=== PATIENT | female | born 1960 | race Caucasian/White ===

== ENCOUNTER → 2020-02-13 09:19 | Outpatient (BNVA) | payer SELFPAY | PROVIDERS: Family Provider Family Medicine; PCP Nurse Practitioner Family; Visit Provider Nurse Practitioner Family | DX: R30.0 Dysuria (principal); N30.01 Acute cystitis with hematuria | CPT/HCPCS: 80053; 81000; 87077; 87086; 87186 ==

== ENCOUNTER → 2020-04-14 09:00 | Outpatient (BNVA) | payer SELFPAY | PROVIDERS: Family Provider Family Medicine; PCP Nurse Practitioner Family; Visit Provider Nurse Practitioner Family | DX: I10 Essential (primary) hypertension (principal); Z68.1 Body mass index [BMI] 19.9 or less, adult; F41.9 Anxiety disorder, unspecified | CPT/HCPCS: 80053; 80061; 84439; 84443; 85025 ==

== ENCOUNTER → 2020-05-05 14:33 | Outpatient (BNVA) | payer SELFPAY | PROVIDERS: Family Provider Family Medicine; PCP Nurse Practitioner Family; Visit Provider Nurse Practitioner Family | DX: R35.0 Frequency of micturition (principal); R31.29 Other microscopic hematuria | CPT/HCPCS: 80053; 81000; 87077; 87086; 87184 ==

== ENCOUNTER 2021-12-16 09:45 | Outpatient (CLI) | payer OTHER, MEDICAID, SELFPAY ==
--- NOTE | 2021-12-16 09:53 | MM_ITS ---
WS: [id number] VIEWS: MLO and CC views both breasts. 3D digital tomosynthesis is also included in this exam. Comparison made with prior exam of 06/21/2010, 10/24/2012, 10/27/2013, 11/13/2014, 05/12/2016.. Findings: There was no sign of mass, architectural distortion or suspicious calcification in either breast. Ho mogeneously dense MM/[place] [id number] Impression: BI-RADS: 2-Benign FOLLOW-UP: 1 Year Follow-up This mammogram was also analyzed by the Computer Aided Detection System R2 Imag e Supervisor [employer].
== END 2021-12-16 09:46 | disposition home or self-care (01) ==
LOC: RAD 09:49
PROVIDERS: Family Provider Family Medicine; PCP Nurse Practitioner Family; Visit Provider Nurse Practitioner Family
DX: Z12.31 Encounter for screening mammogram for malignant neoplasm of breast (principal)
CPT/HCPCS: 77063; 77067

== ENCOUNTER → 2022-01-30 09:00 | Outpatient (BNVA) | payer OTHER, MEDICAID, SELFPAY | PROVIDERS: Family Provider Family Medicine; PCP Nurse Practitioner Family; Visit Provider Nurse Practitioner Family | DX: I10 Essential (primary) hypertension (principal); E55.9 Vitamin D deficiency, unspecified; F41.9 Anxiety disorder, unspecified | CPT/HCPCS: 80053; 80061; 82306; 84443; 85025 ==

== ENCOUNTER 2022-03-05 13:12 | Emergency (ER) | payer OTHER, MEDICAID, SELFPAY ==
[2022-03-05 13:20] VITALS: BP 145/80; PULSE 75; RESP 18; TEMP 36.4; O2SAT 98; BMI 18.3
--- NOTE | 2022-03-05 13:31 | ED_ITS ---
HPI - Allergic Reaction General: Chief complaint: Allergic Reaction Stated complaint: wasp sting Time Seen by Provider: 03/05/22 13:31 Source: patient Mode of arrival: ambulatory Limitations: no limitations History of Present Illness: HPI narrative: 61-year-old female presents to the ER today after a wasp sting about 2 hours ago. Patient reports she was stung and saw the wasp. She was stung on the left posterior forearm. Patient reports there is redness and swelling around the area of the sting. 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 She reports she has had breathing issues before but has not required epi. She reports she does not have an EpiPen at this time. Patient did take 50 mg of Benadryl when this happened. She reports other than the redness and some pain that shoots up her arm she denies any breathing issues, throat swelling, abnormal sensations in the mouth. Review of Systems General: Reports: 10 or more systems reviewed and unremarkable except in HPI and below ENMT: Denies: uvular edema PFS ED PFSH: Medical History Anxiety Depression Family History Sister Parkinsons disease Father Parkinsons disease Social History Smoking and tobacco status: current every day smoker cigarettes Alcohol intake: never Physical Exam Const: COMMON NORMALS: no acute distress, average body habitus, patient oriented x3, no limitations, healthy appearing, alert and well nourished HENMT: COMMON NORMALS: normocephalic, atraumatic, Normal external nose present, Normal nasal mucous membranes and turbinates present, moist oral mucous membranes and oropharynx normal HEAD & SCALP: normocephalic and atraumatic NOSE: Normal external nose present and Normal nasal mucous membranes and turbinates present THROAT: posterior oropharynx normal; no uvular edema Neck/C-Spine: COMMON NORMALS: full ROM and no lymphadenopathy Resp: COMMON NORMALS: normal respiratory effort, No retractions and clear to auscultation bilaterally AUSCULTATION: clear to auscultation bilaterally Cardio: COMMON NORMALS: regular rate, regular rhythm and No murmurs present (Cardio) RATE: regular rate RHYTHM: regular rhythm Extremity: NARRATIVE EXTREMITY EXAM: Patient has tenderness over the area of the wasp sting. There is erythema and some mild swelling also in this area on the posterior left forearm just proximal to the wrist. Patient has normal range of motion. Swelling would be considered mild at this time. Neuro: COMMON NORMALS: patient oriented x3 SENSORIUM/ORIENTATION: Yes alert Psych: COMMON NORMALS: mental status grossly normal, Normal thought process present and cooperative THOUGHT PROCESS: Normal thought process present Skin: NARRATIVE SKIN EXAM: Area of wasp sting has surrounding erythema, no drainage noted. No bruising noted. Course ED course: 61-year-old female presents to the ER today after a wasp sting about 2 hours ago. Patient reports she was stung and saw the wasp. She was stung on the left posterior forearm. Patient reports there is redness and swelling around the area of the sting. 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 She reports she has had breathing issues before but has not required epi. She reports she does not have an EpiPen at this time. Patient did take 50 mg of Benadryl when this happened. She reports other than the redness and some pain that shoots up her arm she denies any breathing issues, throat swelling, abnormal sensations in the mouth. Patient is not in any distress. There does not appear to be any anaphylactic reaction. We will give patient 125 mg of Solu-Medrol in the ER today. Vital Signs: Vital signs: Vital Signs Temperature 97.5 F L 03/05/22 13:20 Pulse Rate 75 03/05/22 13:20 Respiratory Rate 18 03/05/22 13:20 Blood Pressure 145/80 03/05/22 13:20 Pulse Oximetry 98 03/05/22 13:20 MDM - Allergic Reaction Medical Decision Making 61-year-old female presents to the ER today after a wasp sting about 2 hours ago. Patient reports she was stung and saw the wasp. She was stung on the left posterior forearm. Patient reports there is redness and swelling around the area of the sting. 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 She reports she has had breathing issues before but has not required epi. She reports she does not have an EpiPen at this time. Patient did take 50 mg of Benadryl when this happened. She reports other than the redness and some pain that shoots up her arm she denies any breathing issues, throat swelling, abnormal sensations in the mouth. Patient is in no acute distress on exam. No throat swelling or breathing issues. This appears to be a localized skin reaction. I will go ahead and give 125 mg of Solu-Medrol in the ER. Patient did just have 50 mg of Benadryl but I recommended she continue that every 4-6 hours. Also recommended Zyrtec or Claritin daily and famotidine twice daily as needed if any reaction were to continue. I will give patient a prescription for an EpiPen in case she has a worse reaction in the future. Patient should follow-up with PCP as needed. Return to the ER with any new or worsening symptoms. Patient verbalized understanding and was in agreement with the treatment plan. Critical Care Time Critical Care Time: Critical Care Time: No Discharge Plan Discharge Patient Disposition: Home Clinical Impression: Allergic reaction to wasp sting Condition: Stable Prescriptions: New epinephrine 0.3 mg/0.3 mL auto-injector 0.3 mg IM Q15M PRN (Reason: anaphylaxis) Qty: 2 0RF Rx Instructions: do not exceed 3 doses per episode No Action lorazepam 0.5 mg tablet 0.5 mg PO BID PRN (Reason: anxiety) Qty: 60 0RF sertraline 50 mg tablet See Rx Instructions .ROUTE .COMPLEX Qty: 90 0RF Dose Instruction: TAKE ONE TABLET BY MOUTH ONCE DAILY Rx Instructions: TAKE ONE TABLET BY MOUTH ONCE DAILY atenolol 25 mg tablet See Rx Instructions .ROUTE .COMPLEX Qty: 90 0RF Dose Instruction: TAKE ONE TABLET BY MOUTH ONCE DAILY Rx Instructions: TAKE ONE TABLET BY MOUTH ONCE DAILY cholecalciferol (vitamin D3) 50 mcg (2,000 unit) capsule 50 mcg PO DAILY Qty: 90 3RF atorvastatin 20 mg tablet 20 mg PO DAILY Qty: 90 1RF Discharge Orders: Discharge ED (Routine); Ordered 03/05/22 Ordered By: Uzma Gómez Referrals: Lanie Pineda NP [Primary Care Provider] - Discharge Diet: Usual diet Discharge Activity: Resume usual activity Patient Instructions: Opioid Safety Activity Restrictions/Additional Instructions: Take 50 mg of Benadryl every 4-6 hours as long as you have symptoms. Take Zyrtec or Claritin once daily. Take famotidine twice daily as discussed. EpiPen prescription written in case reaction were to worsen. Follow-up with PCP as needed. To the ER with any new or worsening symptoms. Coding Level of Care Code ED Senior Business Development Manager for [employer]ha Sanchez
== END 2022-03-05 14:34 | disposition home or self-care (01) ==
PROVIDERS: Emergency Provider Physician Assistant; PCP Nurse Practitioner Family
DX: T63.461A Toxic effect of venom of wasps, accidental (unintentional), initial encounter (principal); F17.210 Nicotine dependence, cigarettes, uncomplicated
CPT/HCPCS: 96374; 99284; J2930

== ENCOUNTER → 2022-06-05 12:49 | Outpatient (BNVA) | payer OTHER, MEDICAID, SELFPAY | PROVIDERS: PCP Nurse Practitioner Family; Visit Provider Nurse Practitioner Family | DX: Z12.11 Encounter for screening for malignant neoplasm of colon (principal); Z78.0 Asymptomatic menopausal state; Z12.4 Encounter for screening for malignant neoplasm of cervix; I10 Essential (primary) hypertension; F41.9 Anxiety disorder, unspecified; F33.0 Major depressive disorder, recurrent, mild; Z68.1 Body mass index [BMI] 19.9 or less, adult | CPT/HCPCS: 88175 ==

== ENCOUNTER 2022-08-28 00:56 | Emergency (ER) | payer OTHER, MEDICAID, SELFPAY ==
[2022-08-28 01:00] VITALS: BP 157/88; PULSE 62; RESP 16; TEMP 36.4; O2SAT 96; BMI 19.2
--- NOTE | 2022-08-28 01:10 | ED_ITS ---
HPI - Allergic Reaction General: Chief complaint: Allergic Reaction Stated complaint: Wasp Sting Allergic Time Seen by Provider: 08/28/22 00:58 History of Present Illness: HPI narrative: Patient is a 61-year-old female comes to the ED with while standing. Patient is allergic to wasp stings and carries an EpiPen for them. She states that she has never had to use her EpiPen for a wasp sting in the past. The wasp stings occurred approximately an hour ago and she was stung on her right elbow. She has some swelling, redness and itchiness around wasp sting site. Patient took about 10 mg of liquid Benadryl before coming to the ED. She endorses having a little bit of left side of her tongue swelling which she says is common for her because she has glossitis when she takes certain medications such as Benadryl. Denies any lip or tongue tingling, shortness of breath, throat tightening, nausea/vomiting or diarrhea. Associated symptoms: Reports tongue swelling; Deny abdominal pain, facial swelling, nausea or vomiting Review of Systems Const: Denies: fever(s), chills or fatigue Eyes: Denies: change in vision or eye discomfort ENMT: Denies: throat pain, odynophagia, nasal discharge or nasal congestion Card: Denies: chest pain, palpitations, edema, swelling of feet/ankles, dyspnea on exertion or orthopnea Resp: Denies: dyspnea, productive cough or non-productive cough GI: Denies: abdominal pain, nausea, vomiting, diarrhea, constipation or hematochezia : Denies: flank pain, dysuria or hematuria Musc: Denies: neck pain, back pain or extremity swelling Skin/Breast: Denies: rash or new lesions Neuro: Denies: headache(s), numbness in extremities or weakness in extremities All/Imm: Reports: tongue swelling and other (Itchiness, erythema and swelling around wasp sting site on elbow); Denies: throat swelling, facial swelling or acute wheezing PFSH ED PFSH: Medical History Anxiety Depression History of nonmelanoma skin cancer Family History Sister Parkinsons disease Father Parkinsons disease Social History Smoking and tobacco status: current every day smoker cigarettes Alcohol intake: never Physical Exam Const: COMMON NORMALS: no acute distress, patient oriented x3, healthy appearing and alert GENERAL APPEARANCE: cooperative and comfortable HENMT: COMMON NORMALS: normocephalic HEAD & SCALP: normocephalic MOUTH: Normal oral and palatal mucosa present, lip normal and tongue normal THROAT: posterior oropharynx normal and uvula midline Neck/C-Spine: COMMON NORMALS: supple GENERAL: Yes normal visual inspection Resp: COMMON NORMALS: normal respiratory effort, No retractions, No use of accessory muscles and clear to auscultation bilaterally AUSCULTATION: clear to auscultation bilaterally Cardio: COMMON NORMALS: regular rate, regular rhythm, S1 normal heart sound present, S2 normal heart sound present, No gallops present (Cardio), No clicks present (Cardio), No murmurs present (Cardio) and Peripheral pulses 2+ throughout RATE: regular rate RHYTHM: regular rhythm HEART SOUNDS: S1 normal heart sound present and S2 normal heart sound present PERIPHERAL PULSES: Peripheral pulses 2+ throughout GI: COMMON NORMALS: Normal to inspection, nondistended, normoactive bowel sounds present, Soft to palpation, non-tender and no masses PALPATION: Yes Soft to palpation : COMMON NORMALS: Yes no CVA tenderness BLADDER/KIDNEY EXAM: Yes no CVA tenderness Back/Pelvis: COMMON NORMALS: no CVA tenderness Neuro: COMMON NORMALS: patient oriented x3 SENSORIUM/ORIENTATION: Yes alert GAIT: Yes Normal gait present Skin: NARRATIVE SKIN EXAM: Right elbow?mild erythema and swelling around wasp sting GENERAL SKIN EXAM: dry skin Course Vital Signs: Vital signs: Vital Signs Temperature 97.6 F 08/28/22 01:00 Pulse Rate 62 08/28/22 01:00 Respiratory Rate 16 08/28/22 01:00 Blood Pressure 157/88 08/28/22 01:00 Pulse Oximetry 96 08/28/22 01:00 Oxygen Delivery Me thod 08/28/22 01:00 MDM - Allergic Reaction Medical Decision Making Patient is a 61-year-old female comes to the ED with wasp sting on right elbow. She has an allergy to wasp stings. While sting occurred approximately an hour ago when she took 10 mg of Benadryl before coming to the ED. She has some swelling, redness and itchiness around wasp sting site. Patient took about 10 mg of liquid Benadryl before coming to the ED. She endorses having a little bit of left side of her tongue swelling which she says is common for her because she has glossitis when she takes certain medications such as Benadryl. Denies any lip or tongue tingling, shortness of breath, throat tightening, nausea/vomiting or diarrhea. Vitals are stable. Exam shows a healthy nontoxic-appearing patient in no acute distress or pain. She has a little bit of erythema and swelling around while staying on right elbow. Rest of exam is benign. She was given a dose of IM Benadryl and IM Solu-Medrol here in the ED. She was monitored for over an hour and the rash around right elbow improved. She feels good and denies any tongue swelling, lip swelling, shortness of breath, numbness/tingling in mouth, throat tightening, nausea/vomiting or diarrhea. She was stable for discharge home and diagnosed with allergic reaction to wasp sting. She was told to follow-up with her PCP in the next week for reevaluation. She was sent home with a prescription for prednisone. Return to ED precautions given. Patient understood and agreed with plan. Discharge Plan Discharge Patient Disposition: Home Clinical Impression: Allergic reaction to wasp sting Condition: Stable Prescriptions: New prednisone 20 mg tablet 20 mg PO BID 3 Days Qty: 6 0RF No Action atenolol 25 mg tablet See Rx Instructions .ROUTE .COMPLEX Qty: 90 3RF Dose Instruction: TAKE ONE TABLET BY MOUTH ONCE DAILY Rx Instructions: TAKE ONE TABLET BY MOUTH ONCE DAILY atorvastatin 20 mg tablet 20 mg PO DAILY Qty: 90 1RF sertraline 50 mg tablet See Rx Instructions .ROUTE .COMPLEX Qty: 90 3RF Dose Instruction: TAKE ONE TABLET BY MOUTH ONCE DAILY Rx Instructions: TAKE ONE TABLET BY MOUTH ONCE DAILY cholecalciferol (vitamin D3) 50 mcg (2,000 unit) capsule 50 mcg PO DAILY Qty: 90 3RF lorazepam 0.5 mg tablet 0.5 mg PO BID PRN (Reason: anxiety) Qty: 60 0RF epinephrine 0.3 mg/0.3 mL auto-injector 0.3 mg IM Q15M PRN (Reason: anaphylaxis) Qty: 2 0RF Rx Instructions: do not exceed 3 doses per episode Discharge Orders: Discharge ED (Routine); Ordered 08/28/22 Ordered By: Alexandro Foster Referrals: Lanie Pineda NP [Primary Care Provider] - Discharge Diet: Regular Discharge Activity: Resume usual activity Patient Instructions: Insect Bite or Sting (ED) Activity Restrictions/Additional Instructions: Follow-up with medical provider as directed in the next 7 to 10 days for reevaluation. Take medications as prescribed. Return to the ER or your medical provider if condition worsens. Please read and understand discharge instructions. Thank you for choosing [facility] for your healthcare needs today. Please realize this is an emergency room and that we are providing you with a medical screening exam and this may not be complete and all inclusive of all the testing and or work up that you may need to determine your ailment or severity of your illness. It is very important that you follow up as instructed or that you return to the Emergency Department should you have concerns or if your condition changes or worsens in any way. Coding Level of Care Code ED Alumni Relations Manager for Radha Sanchez
[2022-08-28] MEDS: diphenhydrAMINE 50 mg/mL SDV 1mL IM (01:17)
== END 2022-08-28 02:33 | disposition home or self-care (01) ==
PROVIDERS: Emergency Provider Physician Assistant; PCP Nurse Practitioner Family
DX: T63.481A Toxic effect of venom of other arthropod, accidental (unintentional), initial encounter (principal); F17.210 Nicotine dependence, cigarettes, uncomplicated
CPT/HCPCS: 96372; 99284; J1200; J2930

== ENCOUNTER 2022-09-06 14:14 | Outpatient (CLI) | payer OTHER, MEDICAID, SELFPAY ==
--- NOTE | 2022-09-06 14:35 | ECG_ITS ---
[facility] Test Date: 2022-09-06 Pat Name: Ricardo Chase Department: Room: Gender: Female Associate Professor Of History: : 1960 Requested By: Inder Comer Order Number: [id number] Naman MD: Compa Juarez M.D. Measurements Intervals Zullinger Rate: 58 P: 54 AK: 155 QRS: 62 QRSD: 76 T: 65 QT: 390 QTc: 383 Interpretive Statements SINUS BRADYCARDIA No previous ECG available for comparison Electronically Signed On 09-07-2022 18:14:26 HOOD MAKER by Compa Juarez M.D. [email or web address].[employer]/store/[id number] f
[2022-09-06 14:38] LABS: Basophils # 0.1 10^3/uL (0.0-0.1); Basophils % 0.5 %; Eosinophils # 0.1 10^3/uL (0.0-0.8); Hematocrit 42.8 % (37.0-47.0); Hemoglobin 13.6 g/dL (11.5-15.3); Lymphocytes # 4.1 10^3/uL (0.8-4.8); Lymphocytes % 40.9 %; Mean Corpuscular HGB Conc 31.8 g/dL (30.0-36.0); Mean Corpuscular Hemoglobin 30.3 pg (28.0-34.0); Mean Corpuscular Volume 95.3 fl (81-99); Mean Platelet Volume 10.6 fL (7.4-10.4); Monocytes # 0.6 10^3/uL (0.2-0.9); Monocytes % 6.4 %; Neutrophils # 5.11 10^3/uL (1.8-7.7); Nucleated Red Blood Cells % 0 %; Platelet Count 253 10^3/cmm (130-400); Red Blood Count 4.49 10^6/uL (4.1-5.3); Red Cell Distribution Width 11.9 % (12.1-15.1)
[2022-09-06 15:06] LABS: Anion Gap 16.2 (5-19); Blood Urea Nitrogen 9 mg/dL (8-23); Calcium 9.8 mg/dL (8.5-10.5); Carbon Dioxide 26 mmol/L (22-29); Chloride 99 mmol/L (98-107); Glomerular Filtration Rate 72.4 mL/min (90-130); Glucose 90 mg/dL (65-115); Osmolality Calculated 282 mOsm/kg (285-295); Potassium 4.2 mmol/L (3.5-5.1); Sodium 137 mmol/L (136-145)
== END 2022-09-06 14:15 | disposition home or self-care (01) ==
LOC: LAB 14:18
PROVIDERS: PCP Nurse Practitioner Family; Visit Provider Specialist
DX: C44.41 Basal cell carcinoma of skin of scalp and neck (principal); R00.1 Bradycardia, unspecified
CPT/HCPCS: 80048; 85025; 93005

== ENCOUNTER 2022-09-27 09:22 | Outpatient (CLI) | payer OTHER, MEDICAID, SELFPAY | END 2022-09-27 09:23 | disposition home or self-care (01) | PROVIDERS: PCP Nurse Practitioner Family; Visit Provider Specialist | DX: C44.41 Basal cell carcinoma of skin of scalp and neck (principal) | CPT/HCPCS: 88304; 88331 ==

== ENCOUNTER 2022-10-11 15:59 | Emergency (ER) | payer OTHER, MEDICAID, SELFPAY ==
--- NOTE | 2022-10-11 16:01 | XRR_ITS ---
PROCEDURE INFORMATION: Exam: XR Right Wrist Exam date and time: 10/11/2022 4:42 PM Age: 61 years old Clinical indication: Pain; Wrist; Right; Additional info: Right wrist injury, fall swelling TECHNIQUE: Imaging protocol: Radiologic exam of the right wrist. Views: 3 or more views. COMPARISON: No relevant prior studies available. FINDINGS: Bones/joints: Comminuted and impacted fracture of the right distal radius with mild dorsal displacement and apex volar angulation. Additional minimally displaced ulnar styloid process avulsion fracture also present. Soft tissues: Mild surrounding soft tissue swelling. XR/XR wrist RT min 3V* [id number] IMPRESSION: 1. Comminuted and impacted fracture of the right distal radius with mild dorsal displacement and apex volar angulation. 2. Additional minimally displaced ulnar styloid process avulsion fracture also present.
[2022-10-11 16:32] VITALS: BP 161/77; PULSE 71; RESP 20; O2SAT 98; BMI 19.2
--- NOTE | 2022-10-11 16:40 | XRR_ITS ---
PROCEDURE INFORMATION: Exam: XR Right Elbow Exam date and time: 10/11/2022 4:44 PM Age: 61 years old Clinical indication: Injury or trauma; Fall; Additional info: Fall pain TECHNIQUE: Imaging protocol: Radiologic exam of the right elbow. Views: 3 or more views. COMPARISON: CR XR wrist RT min 3V* [id number] 10/11/2022 4:42 PM FINDINGS: Bones/joints: Normal. Soft tissues: Normal. XR/XR elbow RT min 3V* [id number] IMPRESSION: No acute findings.
--- NOTE | 2022-10-11 16:45 | ED_ITS ---
HPI - Extremity Problem General: Chief complaint: Extremity Injury, Upper Stated complaint: right wrist injury Time Seen by Provider: 10/11/22 16:34 History of Present Illness: Patient presents to the ER with complaints of a fall with right wrist pain. Patient was sitting her recliner got up fell landed on her arm which is crumpled underneath her. Patient is having wrist and elbow pain. No loss of consciousness MD Complaint: extremity pain Pain Consistency: constant Location: left, upper extremity and elbow Quality: aching Radiation: none Relieving factors: immobilization Exacerbating factors: range of motion Associated symptoms: Reports no associated symptoms; Deny chest pain or fever(s) Review of Systems General: Reports: 10 or more systems reviewed and unremarkable except in HPI and below Const: Denies: fever(s) or chills Eyes: Denies: change in vision ENMT: Denies: throat pain or enlarged tonsils Card: Denies: chest pain, palpitations or irregular heart rhythm Resp: Denies: dyspnea, productive cough or non-productive cough GI: Denies: abdominal pain, nausea, vomiting or diarrhea Musc: Denies: neck pain or back pain Neuro: Denies: headache(s), numbness in extremities or weakness in extremities PFSH ED PFSH: Medical History Anxiety Depression History of nonmelanoma skin cancer Family History Sister Parkinsons disease Father Parkinsons disease Social History Smoking and tobacco status: current every day smoker cigarettes Alcohol intake: never Physical Exam Const: COMMON NORMALS: no acute distress, average body habitus, patient oriented x3, no limitations, healthy appearing, alert and well nourished HENMT: COMMON NORMALS: normocephalic, atraumatic, hearing grossly normal bilaterally, external ears normal, Normal external nose present and moist oral mucous membranes HEAD & SCALP: normocephalic and atraumatic NOSE: Normal external nose present EXTERNAL EAR: Yes external ears normal Neck/C-Spine: COMMON NORMALS: full ROM, no lymphadenopathy, supple, no meningeal signs and Thyroid normal THYROID: Thyroid normal Chest: COMMONS NORMALS: normal inspection of the chest and normal palpation of entire chest wall Resp: COMMON NORMALS: normal respiratory effort, No retractions, No use of accessory muscles and clear to auscultation bilaterally AUSCULTATION: clear to auscultation bilaterally Cardio: COMMON NORMALS: regular rate, regular rhythm, S1 normal heart sound present, S2 normal heart sound present and No murmurs present (Cardio) RATE: regular rate RHYTHM: regular rhythm HEART SOUNDS: S1 normal heart sound present and S2 normal heart sound present GI: COMMON NORMALS: Normal to inspection, nondistended, normoactive bowel sounds present, Soft to palpation, non-tender, No hepatosplenomegaly present and no masses PALPATION: Yes Soft to palpation and Yes No hepatosplenomegaly pres ent : COMMON NORMALS: Yes no CVA tenderness BLADDER/KIDNEY EXAM: Yes no CVA tenderness Back/Pelvis: COMMON NORMALS: no CVA tenderness Extremity: NARRATIVE EXTREMITY EXAM: Swelling of the right wrist region pain with range of motion and palpation of wrist and elbow. Neuro: COMMON NORMALS: patient oriented x3, CN's II-XII intact bilaterally, moves all extremities, no focal motor deficits and no sensory deficits noted SENSORIUM/ORIENTATION: Yes alert MENINGEAL SIGNS: Yes no meningeal signs Course Vital Signs: Vital signs: Vital Signs Pulse Rate 71 10/11/22 16:32 Respiratory Rate 20 H 10/11/22 16:32 Blood Pressure 161/77 10/11/22 16:32 Pulse Oximetry 98 10/11/22 16:32 Oxygen Delivery Me thod 10/11/22 16:32 MDM - Extremity (Nontraumatic) Medical Decision Making Patient came to the ER today after a fall landing on her arm. Patient has a distal wrist deformity and swelling. Patient is very tender to the touch. X- rays were obtained of her wrist and elbow. These did show a fracture of the distal radius as well as the ulnar styloid process fracture. Dr. Santillan was consulted. He suggested a splint sling and follow-up with him in the office. The findings were explained to the patient in detail. Patient will be discharged with instructions for the sling, splint and to follow-up with Dr. Santillan's office. Patient will call their office to arrange appointment tomorrow. Differential Diagnosis Unlikely herpes zoster, gout, cellulitis, superficial thrombophlebitis or lower extremity edema Lab Data Radiology Impressions Wrist X-Ray 10/11/22 16:01 IMPRESSION: 1. Comminuted and impacted fracture of the right distal radius with mild dorsal displacement and apex volar angulation. 2. Additional minimally displaced ulnar styloid process avulsion fracture also present. Elbow X-Ray 10/11/22 16:40 IMPRESSION: No acute findings. Discharge Plan Discharge Patient Disposition: Home Clinical Impression: Closed fracture of right distal radius, Fracture of right ulnar styloid, Fall Condition: Stable Prescriptions: No Action cholecalciferol (vitamin D3) 50 mcg (2,000 unit) capsule 50 mcg PO DAILY Qty: 90 3RF lorazepam 0.5 mg tablet 0.5 mg PO BID PRN (Reason: anxiety) Qty: 60 0RF epinephrine 0.3 mg/0.3 mL auto-injector 0.3 mg IM Q15M PRN (Reason: anaphylaxis) Qty: 2 0RF Rx Instructions: do not exceed 3 doses per episode hydrocodone-acetaminophen 5-325 mg tablet 1 - 2 tab PO Q5H PRN (Reason: Pain) atorvastatin 20 mg tablet 20 mg PO QPM atenolol 25 mg tablet 25 mg PO QPM sertraline 50 mg tablet 50 mg PO DAILY Discharge Orders: Discharge ED (Routine); Ordered 10/11/22 Ordered By: Trenton Garland Referrals: Lanie Pineda NP [Primary Care Provider] - 1 week Oliverio Santillan MD [Physician] - 1-3 days (Call the office tomorrow morning to arrange follow-up) Patient Instructions: Opioid Safety, Pain Management, Wrist Fracture in Adults (ED), Splint Care (ED) Activity Restrictions/Additional Instructions: Take the hydrocodone you have at home as directed as needed for pain. Coding Level of Care Code ED Chip Mixing Machine Operator for Radha Sanchez
[2022-10-11 19:16] VITALS: BP 132/82; PULSE 78; RESP 14; O2SAT 98
== END 2022-10-11 19:25 | disposition home or self-care (01) ==
PROVIDERS: Emergency Provider Emergency Medicine; PCP Nurse Practitioner Family
DX: S52.591A Other fractures of lower end of right radius, initial encounter for closed fracture (principal); S52.611A Displaced fracture of right ulna styloid process, initial encounter for closed fracture; F17.210 Nicotine dependence, cigarettes, uncomplicated; W18.39XA Other fall on same level, initial encounter
CPT/HCPCS: 29125; 73080; 73110; 99283

== ENCOUNTER 2022-10-23 08:19 | Day surgery (SDC) | payer OTHER, MEDICAID, SELFPAY ==
[2022-10-20 12:02] VITALS: BMI 19.2
[2022-10-23] VITALS (15 sets, daily range): BP systolic 117–169; BP diastolic 80–104; PULSE 63–75; RESP 10–20; TEMP 36.1–36.6; O2SAT 97–100
--- NOTE | 2022-10-23 | XR_ITS ---
WS: [id number] Right wrist, C-arm fluoroscopy views, 10/23/2022 Clinical Data: VADIM PICS Comparison: Right wrist, 10/11/2022 Findings: Dr. Santillan placed a ventral plate with multiple screws to reduce a distal right radial fracture. XR/XR wrist RT 2V 21330 Impression: Internal fixation of distal right radial fracture.
--- NOTE | 2022-10-23 09:07 | W.PM.OPSUD ---
Surgery/Procedure H&P Update DATE OF PROCEDURE: October 23, 2022 DATE H&P PERFORMED: 10/18/22 H&P UPDATE INFORMATION: I have reviewed H&P completed within last 30 days PREOP DIAGNOSIS: Fracture right distal radius PLANNED PROCEDURE: Operation Date: 10/23/22 09:50 Proposed Procedures p ORIF right distal radius/ 45135,S52.501A(Right) - Oliverio Santillan MD
[2022-10-23] MEDS: sodium chloride 0.9% 1,000 ML 30 ML IV (09:10)
[2022-10-23] MEDS: ceFAZolin 2,000 MG in sodium chloride 0.9% (plus) 50 ML 100 MG IV (09:17)
--- NOTE | 2022-10-23 09:28 | ANES.PREANE2 ---
Pre-Anesthetic Assessment Height/Weight: Height 1.57 m Weight 47.627 kg Temp Pulse Resp BP Pulse Ox O2 Del Method 97.9 F 67 16 117/80 98 Room Air 10/23/22 08:39 10/23/22 08:39 10/23/22 08:39 10/23/22 08:39 10/23/22 08:39 10/23/22 08:44 Preop Diagnosis: Fracture right distal radius Operation Date: 10/23/22 09:50 Proposed Procedures p ORIF right distal radius/ 68285,S52.501A(Right) - Oliverio Santillan MD Familial anesthetic complications: none Was Beta Kelton taken within 24 hours: Yes Was Clonidine taken within 24 hours: N/A Last intake: Intake Last Liquid Date 10/22/22 Last Liquid Time 20:00 Last Solid Date 10/22/22 Last Solid Time 20:00 Social No alcohol and No tobacco Exam alert, oriented x 3, clear to auscultation bilaterally and regular rate & rhythm Airway Submandibular: within normal limits Cervical ROM: within normal limits Mallampati: Class II Dentition: chipped CV/HEM Hypertension Metabolic Hyperlipidemia Neuropsych Anxiety and Depression Anesthetic Plan ASA status: 2 Anesthesia: General and Regional (specify below) (Discussed interscalene nerve blk) Medications/Allergies Home Medications Medication Instructions Recorded Confirmed Last Taken Type cholecalciferol (vitamin D3) 50 50 mcg PO DAILY #90 caps 02/02/22 10/20/22 10/21/22 Rx mcg (2,000 unit) capsule epinephrine 0.3 mg/0.3 mL 0.3 mg (0.3 mL) IM Q15M PRN 03/05/22 10/20/22 Unknown Rx injection, auto-injector anaphylaxis #2 ea lorazepam 0.5 mg tablet 0.5 mg PO BID PRN anxiety #60 tabs 09/29/22 10/20/22 10/22/22 08:00 Rx atenolol 25 mg tablet 25 mg PO QPM 10/11/22 10/20/22 10/22/22 22:00 History atorvastatin 20 mg tablet 20 mg PO QPM 10/11/22 10/20/22 10/22/22 21:00 History hydrocodone 5 mg-acetaminophen 325 1 - 2 tab PO Q5H PRN Pain 10/11/22 10/20/22 Unknown History mg tablet sertraline 50 mg tablet 50 mg PO DAILY 10/11/22 10/20/22 10/22/22 20:00 History Allergies Allergy/AdvReac Type Severity Reaction Status Date / Time venom-wasp Allergy ADR/ALGY-Pa Verified 10/20/22 11:58 lpitations Current Medications Generic Name Dose Route Start Last Admin Trade Name Freq PRN Reason Stop Dose Admin Sodium Chloride 1,000 mls @ 30 mls/hr 10/23/22 08:30 10/23/22 09:10 Sodium Chloride 0.9% IV 10/24/22 08:29 30 mls/hr .Q24H RUDDY Administration PFSH Anesthesia Medical History Anxiety Depression History of nonmelanoma skin cancer Family History Sister Parkinsons disease Father Parkinsons disease Social History Smoking and tobacco status: current every day smoker cigarettes Alcohol intake: never Data Anesthesia Cardiac Studies: No Data to Display
--- NOTE | 2022-10-23 10:20 | PM.OP ---
Operative Report Date of procedure: October 23, 2022 Pre-op diagnosis: Preop Diagnosis Fracture right distal radius Post-op diagnosis: same Procedure done: Open reduction internal fixation 2 part fracture right distal radius Implants: Andie Variax short narrow plate Pathology: none sent Surgeon: Oliverio Santillan Anesthesia: General Estimated blood loss (mL): 25 Tourniquet time (min): 24 Findings: Ricardo had a extra-articular fracture of the right distal radius with dorsal comminution and dorsal angulation approximately 30 degrees Condition: stable Disposition: PACU Brief History: Ricardo is a 61-year-old female who fell with resulting angulated comminuted fracture of the right distal radius. She had unacceptable dorsal angulation and surgery was chosen to restore alignment and improve long-term appearance and function Procedure: Initial attempts were made at closed reduction however a satisfactory stable reduction could not be obtained. A decision was made to proceed with open reduction internal fixation.A 5 cm long incision was made along over the flexor carpi radialis tendon. Dissection was carried down through the tendon sheath. Dissection was carried down bluntly to the pronator quadratus. The pronator quadratus was elevated off of the distal radius leaving a cuff for later repair. Closed reduction was accomplished of the distal radius. A Andie Variax extra short narrow plate was applied. It was fixed distally with 5 locking screws and proximally with 3 bicortical screws. Intraoperative imaging showed excellent position of the hardware. The wound was irrigated with saline. The pronator quadratus was reapproximated with 2-0 Vicryl. Subcutaneous tissues were closed with 2-0 Vicryl. The skin was closed with skin beatrice. Sterile dressings were applied. The patient was taken to outpatient surgery in stable condition.
[2022-10-23] MEDS: fentaNYL 50 mcg/mL INJ 2mL 100 MCG IVP (11:00)
[2022-10-23] MEDS: HYDROcodone-acetaminophen 5-325 mg Tablet 1 TAB PO (11:36)
--- NOTE | 2022-10-23 11:56 | PC.NURSE ---
patient requested nerve block at this time. Dr. Sun performed block per patient request. tolerated procedure well.
--- NOTE | 2022-10-23 13:04 | ANES.PROC ---
Anesthesia Procedures Procedure/Date: 10/23/22 Nerve Block ^: Nerve Block 1: Main Anesthesia: general anesthesia Time Out Performed: Yes Consent: from patient, risks and benefits reviewed and patient agrees to proceed Nerve block location: interscalene (right) Anesthesia monitors applied: pulse oximetry, EKG, BP cuff and oxygen Nerve block position: semi sitting Anesthetic Used: ropivicaine 0.5% Amount of anesthesia used (mL): 20 Ultrasound used to: recognize landmarks and visualize and ID brachial plexus Nerve Stimulator Used?: No Interscalene/Femoral BLK: 2 stimuplex 22 g needle used for position and inplane approach Injection: neg aspiration of heme Patient Tolerated Procedure: well Complications: none
--- NOTE | 2022-10-23 14:59 | ANE.PACU2 ---
Inpatient post-anesthesia follow up: Airway intact: Yes Vital signs: Temperature 97.8 F Pulse Rate 66 Respiratory Rate 16 Blood Pressure 156/87 Pulse Oximetry 97 Oxygen Delivery Me thod Room Air Oxygen Flow Rate 6 Fraction of Inspir ed Oxygen Hydration adequate: Yes Nausea and vomiting: No Pain level: 1 Mental status: Baseline
== END 2022-10-23 13:02 | disposition home or self-care (01) ==
PROVIDERS: PCP Nurse Practitioner Family; Visit Provider Orthopaedic Surgery
PROC: (CPT 25607; principal; 2022-10-23 09:40)
DX: S52.501A Unspecified fracture of the lower end of right radius, initial encounter for closed fracture (principal); W19.XXXA Unspecified fall, initial encounter; Z79.891 Long term (current) use of opiate analgesic; F17.210 Nicotine dependence, cigarettes, uncomplicated; I10 Essential (primary) hypertension; F41.9 Anxiety disorder, unspecified; F32.A Depression, unspecified
CPT/HCPCS: 25607; 73100; 76000; C1713; J0131; J0690; J1100; J1580; J2405; J2704; J2795; J3010; J3490; J7030

== ENCOUNTER → 2022-11-07 15:13 | Outpatient (BNVA) | payer OTHER, MEDICAID, SELFPAY | PROVIDERS: PCP Nurse Practitioner Family; Visit Provider Orthopaedic Surgery | DX: Z98.890 Other specified postprocedural states (principal); S52.501D Unspecified fracture of the lower end of right radius, subsequent encounter for closed fracture with routine healing; X58.XXXD Exposure to other specified factors, subsequent encounter | CPT/HCPCS: 73110 ==

== ENCOUNTER 2022-11-07 16:24 | Outpatient (CLI) | payer OTHER, MEDICAID, SELFPAY | END 2022-11-07 16:25 | disposition home or self-care (01) | LOC: SPT 16:24 | PROVIDERS: PCP Nurse Practitioner Family; Visit Provider Orthopaedic Surgery | DX: Z46.89 Encounter for fitting and adjustment of other specified devices (principal); S52.591D Other fractures of lower end of right radius, subsequent encounter for closed fracture with routine healing; X58.XXXD Exposure to other specified factors, subsequent encounter; Z98.890 Other specified postprocedural states | CPT/HCPCS: 97760; L3908 ==

== ENCOUNTER → 2022-11-30 15:36 | Outpatient (BNVA) | payer OTHER, MEDICAID, SELFPAY | PROVIDERS: PCP Nurse Practitioner Family; Visit Provider Nurse Practitioner Family | DX: I10 Essential (primary) hypertension (principal); F41.9 Anxiety disorder, unspecified; Z68.1 Body mass index [BMI] 19.9 or less, adult; Z12.11 Encounter for screening for malignant neoplasm of colon | CPT/HCPCS: 80053; 80061; 84443 ==

== ENCOUNTER 2023-09-01 22:52 | Emergency (ER) | payer OTHER, MEDICAID, SELFPAY ==
[2023-09-01 23:02] VITALS: BP 148/77; PULSE 64; RESP 20; TEMP 36.6; O2SAT 98; BMI 19.2
--- NOTE | 2023-09-02 00:12 | XRR_ITS ---
PROCEDURE INFORMATION: Exam: XR Chest Exam date and time: 09/02/2023 12:18 AM Age: 62 years old Clinical indication: Pain; Patient HX: Cp radiating to left shoulder; Additional info: Chest left shoulder pain TECHNIQUE: Imaging protocol: Radiologic exam of the chest. Views: 1 view. COMPARISON: No relevant prior studies available. FINDINGS: Lungs: Unremarkable. No consolidation. Pleural spaces: Unremarkable. No pleural effusion. No pneumothorax. Heart/Mediastinum: Unremarkable. No cardiomegaly. Bones/joints: Unremarkable. XR/XR chest 1V portable [id number] IMPRESSION: No acute findings.
--- NOTE | 2023-09-02 00:12 | ECG_ITS ---
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 Measurements Intervals [place] Rate: 59 P: 24 MO: 114 QRS: 39 QRSD: 74 T: 56 QT: 404 QTc: 402 Interpretive Statements SINUS BRADYCARDIA WITH SHORT MO INTERVAL SEPTAL MYOCARDIAL INFARCTION , OF INDETERMINATE AGE [40+ ms Q WAVE IN V1/V2] Compared to ECG 09/06/2022 14:35:55 Short MO interval now present Myocardial infarct finding now present Electronically Signed On 09-02-2023 20:54:17 AUTO INSPECTOR by Ted Cassidy M.D. [id number]
[2023-09-02] MEDS: dexamethasone 4 mg Tablet 10 MG PO (00:49)
[2023-09-02] MEDS: ketorolac 10 mg Tablet PO (00:49)
[2023-09-02] MEDS: cyclobenzaprine 10 mg Tablet 5 MG PO (00:50)
[2023-09-02 00:59] LABS: Basophils % 0.4 %; Eosinophils # 0.2 10^3/uL (0.0-0.8); Eosinophils % 1.8 %; Hematocrit 39.5 % (36-47); Lymphocytes # 3.5 10^3/uL (0.8-4.8); Mean Corpuscular HGB Conc 32.7 g/dL (30-55); Mean Corpuscular Hemoglobin 31.5 pg (27-33); Mean Corpuscular Volume 96.6 fl (85-98); Monocytes # 0.6 10^3/uL (0.2-0.9); Monocytes % 5.9 %; Neutrophils # 5.14 10^3/uL (1.8-7.7); Neutrophils % 54.7 %; Nucleated Red Blood Cells % 0 %; Platelet Count 251 10^3/cmm (157-399); Red Blood Count 4.09 10^6/uL (3.85-5.65); Red Cell Distribution Width 11.7 % (12.1-15.1); White Blood Count 9.42 10^3/uL (3.29-11.43)
[2023-09-02 01:14] LABS: Troponin(5th) Baseline 7 ng/L (0-10)
[2023-09-02 01:15] LABS: Alanine Aminotransferase 9 U/L (0-33); Albumin Level 4.4 g/dL (3.5-5.2); Alkaline Phosphatase 135 U/L (35-105); Anion Gap 15.6 (5-19); Aspartate Amino Transferase 19 U/L (0-32); Blood Urea Nitrogen 6 mg/dL (8-23); Calcium 10.1 mg/dL (8.5-10.5); Carbon Dioxide 25 mmol/L (22-29); Chloride 101 mmol/L (98-107); Globulin 3.2 g/dL (1.3-4.6); Glomerular Filtration Rate 84.2 mL/min (90-130); Glucose 84 mg/dL (65-115); Osmolality Calculated 283 mOsm/kg (285-295); Potassium 3.6 mmol/L (3.5-5.1); Sodium 138 mmol/L (136-145); Total Bilirubin 0.3 mg/dL (0.15-1.2); Total Protein 7.6 g/dL (6.6-8.7)
--- NOTE | 2023-09-02 17:03 | ED_ITS ---
HPI - Extremity Problem 2 General: Chief complaint: Extremity Injury, Upper Stated complaint: left shoulder pain Time Seen by Provider: 09/01/23 23:07 History of Present Illness: 62 year old female with left sided neck and shoulder pain. He notes the pain is quite intense and radiates down to her left distal arm. No numbness or tingling. No known trauma. pain spreads a little bit into her left upper chest, so this concerned her. She has no prior history of heart disease. Associated symptoms: Reports chest pain; Deny rash Review of Systems 2 Card: Reports: chest pain; Denies: palpitations Resp: Denies: dyspnea, productive cough or non-productive cough GI: Denies: abdominal pain or vomiting : Denies: flank pain Musc: Reports: neck pain and extremity pain; Denies: extremity swelling Skin/Breast: Denies: rash PFSH ED 2 PFSH: Medical History Anxiety Depression History of nonmelanoma skin cancer Family History Sister Parkinson disease Father Parkinson disease Social History Smoking and tobacco/nicotine status: current every day tobacco/nicotine user cigarettes Alcohol intake: never Physical Exam 2 Const: COMMON NORMALS: no acute distress GENERAL APPEARANCE: cooperative; not ill appearing and not frail appearing HENMT: COMMON NORMALS: normocephalic, atraumatic and Normal external nose present HEAD & SCALP: normocephalic and atraumatic FACE & SINUS: normal facial exam and face symmetric NOSE: Normal external nose present Eye: COMMON NORMALS: Equal, round and reactive pupils present and EOMs intact bilaterally PUPIL: Yes Equal, round and reactive pupils present Neck/C-Spine: GENERAL: Yes trachea midline CERVICAL SPINE: Yes pain with cervical ROM, Yes Cervical spine tenderness C5 and C6, No step off deformity, Yes Paracervical muscle tenderness and No Paracervical spasm Chest: CHEST: Yes Symmetrical chest wall rise Resp: COMMON NORMALS: normal respiratory effort, No retractions, No use of accessory muscles and clear to auscultation bilaterally AUSCULTATION: clear to auscultation bilaterally Cardio: COMMON NORMALS: regular rate and regular rhythm RATE: regular rate RHYTHM: regular rhythm GI: COMMON NORMALS: Normal to inspection, nondistended, normoactive bowel sounds present Extremity: COMMON NORMALS: no pedal edema NARRATIVE EXTREMITY EXAM: Exam of the left upper extremity reveals tenderness over the rotator cuff footprint. There is no AC joint or anterior glenohumeral joint tenderness. Empty can test is positive for pain. Liftoff test is negative. Neuro: SKYLAR COMA SCALE: document GCS findings Skylar coma scale eye opening: Spontaneous Townsend coma scale verbal response: Orientated Townsend coma scale motor response: Obey commands Townsend coma scale total score: 15 S ENSORY EXAM: Yes extremities (intact) Psych: COMMON NORMALS: speech normal SPEECH: Yes normal speech Skin: COMMON NORMALS: no rashes or lesions noted GENERAL SKIN EXAM: no rashes or lesions noted Course 2 Vital Signs: Vital signs: Vital Signs Temperature 98 F 09/01/23 23:02 Pulse Rate 64 09/01/23 23:02 Respiratory Rate 20 H 09/01/23 23:02 Blood Pressure 148/77 09/01/23 23:02 Pulse Oximetry 98 09/01/23 23:02 MDM - Extremity (Nontraumatic) Medical Decision Making Vitals are stable. no EKG changes suggestive of any ischemia. pain is reproducible on palpation of the rotator cuff footprint as well as the left neck base. Pain is improved after oral flexeril, toradol, dexamethasone. Troponin is 7. Laboratory otherwise not remarkable. Chest X-ray is negative including imaging the left shoulder. She will be allowed to discharge with treatment for cervical radiculopathy to return for any new or worsening symptoms. Lab Data 09/02/23 00:43 09/02/23 00:43 Radiology Impressions Chest X-Ray 09/02/23 00:12 IMPRESSION: No acute findings. Laboratory Results WBC 9.42 10^3/uL (3.29-11.43) 09/02/23 00:43 RBC 4.09 10^6/uL (3.85-5.65) 09/02/23 00:43 Hgb 12.90 g/dL (11.27-16.99) 09/02/23 00:43 Hct 39.5 % (36-47) 09/02/23 00:43 MCV 96.6 fl (85-98) 09/02/23 00:43 MCH 31.5 pg (27-33) 09/02/23 00:43 MCHC 32.7 g/dL (30-55) 09/02/23 00:43 RDW 11.7 % (12.1-15.1) L 09/02/23 00:43 Plt Count 251 10^3/cmm (157-399) 09/02/23 00:43 MPV 10.0 fL (7.4-10.4) 09/02/23 00:43 Neut % (Auto) 54.7 % 09/02/23 00:43 Lymph % (Auto) 37.0 % 09/02/23 00:43 [place] % (Auto) 5.9 % 09/02/23 00:43 Eos % (Auto) 1.8 % 09/02/23 00:43 Baso % (Auto) 0.4 % 09/02/23 00:43 Neut # (Auto) 5.14 10^3/uL (1.8-7.7) 09/02/23 00:43 Lymph # (Auto) 3.5 10^3/uL (0.8-4.8) 09/02/23 00:43 [place] # (Auto) 0.6 10^3/uL (0.2-0.9) 09/02/23 00:43 Eos # (Auto) 0.2 10^3/uL (0.0-0.8) 09/02/23 00:43 Baso # (Auto) 0.0 10^3/uL (0.0-0.1) 09/02/23 00:43 Nucleated RBC % (auto) 0 % 09/02/23 00:43 Nucleated RBCs # 0.0 /100WBC 09/02/23 00:43 Sodium 138 mmol/L (136-145) 09/02/23 00:43 Potassium 3.6 mmol/L (3.5-5.1) 09/02/23 00:43 Chloride 101 mmol/L (98-107) 09/02/23 00:43 Carbon Dioxide 25 mmol/L (22-29) 09/02/23 00:43 Anion Gap 15.6 (5-19) 09/02/23 00:43 BUN 6 mg/dL (8-23) L 09/02/23 00:43 Creatinine 0.7 mg/dL (0.5-0.9) 09/02/23 00:43 GFR Calculation 84.2 mL/min (90-130) L 09/02/23 00:43 Glucose 84 mg/dL (65-115) 09/02/23 00:43 Calculated Osmolality 283 mOsm/kg (285-295) L 09/02/23 00:43 Calcium 10.1 mg/dL (8.5-10.5) 09/02/23 00:43 Total Bilirubin 0.3 mg/dL (0.15-1.2) 09/02/23 00:43 AST 19 U/L (0-32) 09/02/23 00:43 ALT 9 U/L (0-33) 09/02/23 00:43 Alkaline Phosphatase 135 U/L (35-105) H 09/02/23 00:43 Troponin T Baseline 7 ng/L (0-10) 09/02/23 00:43 Total Protein 7.6 g/dL (6.6-8.7) 09/02/23 00:43 Albumin 4.4 g/dL (3.5-5.2) 09/02/23 00:43 Globulin 3.2 g/dL (1.3-4.6) 09/02/23 00:43 All radiology interpretation(s) finalized by discharge Discharge Plan Discharge Patient Disposition: Home Clinical Impression: Cervical radiculitis Condition: Stable Prescriptions: New Medrol (Harvey) 4 mg tablets,dose pack See Rx Instructions .ROUTE .COMPLEX Qty: 21 0RF Rx Instructions: orally per package directions cyclobenzaprine 5 mg tablet 5 mg PO TID PRN (Reason: muscle spasm) Qty: 14 0RF No Action cholecalciferol (vitamin D3) 50 mcg (2,000 unit) capsule 50 mcg PO DAILY Qty: 90 3RF sertraline 50 mg tablet See Rx Instructions .ROUTE .COMPLEX Qty: 90 3RF Dose Instruction: TAKE ONE TABLET BY MOUTH ONCE DAILY Rx Instructions: TAKE ONE TABLET BY MOUTH ONCE DAILY atenolol 25 mg tablet See Rx Instructions .ROUTE .COMPLEX Qty: 90 3RF Dose Instruction: TAKE ONE TABLET BY MOUTH ONCE DAILY Rx Instructions: TAKE ONE TABLET BY MOUTH ONCE DAILY lorazepam 0.5 mg tablet 0.5 mg PO BID PRN (Reason: anxiety) Qty: 60 0RF epinephrine 0.3 mg/0.3 mL auto-injector 0.3 mg IM Q15M PRN (Reason: anaphylaxis) Qty: 2 0RF Rx Instructions: do not exceed 3 doses per episode atorvastatin 20 mg tablet 20 mg PO QPM Discharge Orders: Discharge ED (Routine); Ordered 09/02/23 Ordered By: Kevin Greenbegr Referrals: Lanie Pineda, WAREHOUSE LOGISTICS COORDINATOR [Primary Care Provider] - 1-3 days Patient Instructions: Cervical Radiculopathy (ED), Opioid Safety, Pain Management Activity Restrictions/Additional Instructions: Return for worsening pain despite treatment, shortness of breath, fever, other concerning symptoms. See your doctor next week. Medication as directed. Coding Level of Care Code ED Employment Program Representative for Radha Sanchez
== END 2023-09-02 02:08 | disposition home or self-care (01) ==
PROVIDERS: Emergency Provider Emergency Medicine; PCP Nurse Practitioner Family
DX: M54.12 Radiculopathy, cervical region (principal); F17.210 Nicotine dependence, cigarettes, uncomplicated
CPT/HCPCS: 36415; 71045; 80053; 84484; 85025; 93005; 99285; J8540

== ENCOUNTER 2023-09-05 12:19 | Emergency (ER) | payer OTHER, MEDICAID, SELFPAY ==
[2023-09-05 12:24] VITALS: BP 178/93; PULSE 69; TEMP 36.4; O2SAT 100; BMI 19.2
--- NOTE | 2023-09-05 12:25 | ECG_ITS ---
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 Measurements Intervals [place] Rate: 64 P: 68 IN: 170 QRS: 46 QRSD: 78 T: 56 QT: 388 QTc: 400 Interpretive Statements SINUS RHYTHM Compared to ECG 09/01/2023 23:10:15 Sinus bradycardia no longer present Short IN interval no longer present Myocardial infarct finding no longer present Electronically Signed On 09-05-2023 15:26:31 ROOF SHINGLER by Compa Juarez M.D. [id number] f
[2023-09-05 13:17] LABS: Basophils % 0.1 %; Hematocrit 42.2 % (36-47); Lymphocytes # 2.2 10^3/uL (0.8-4.8); Lymphocytes % 14.6 %; Mean Corpuscular HGB Conc 32.9 g/dL (30-55); Mean Corpuscular Hemoglobin 32.1 pg (27-33); Mean Corpuscular Volume 97.5 fl (85-98); Mean Platelet Volume 10.1 fL (7.4-10.4); Monocytes # 0.7 10^3/uL (0.2-0.9); Monocytes % 4.4 %; Neutrophils # 12.03 10^3/uL (1.8-7.7); Neutrophils % 80.4 %; Nucleated Red Blood Cells % 0 %; Platelet Count 321 10^3/cmm (157-399); Red Blood Count 4.33 10^6/uL (3.85-5.65); Red Cell Distribution Width 11.9 % (12.1-15.1); White Blood Count 14.98 10^3/uL (3.29-11.43)
[2023-09-05 13:39] LABS: Alanine Aminotransferase 10 U/L (0-33); Albumin Level 4.9 g/dL (3.5-5.2); Alkaline Phosphatase 127 U/L (35-105); Anion Gap 15.9 (5-19); Aspartate Amino Transferase 17 U/L (0-32); Blood Urea Nitrogen 7 mg/dL (8-23); Calcium 10.3 mg/dL (8.5-10.5); Carbon Dioxide 26 mmol/L (22-29); Chloride 100 mmol/L (98-107); Creatinine Clr Calc Pharmacy 73.4388; Globulin 3.5 g/dL (1.3-4.6); Glomerular Filtration Rate 100.6 mL/min (90-130); Glucose 98 mg/dL (65-115); Lipase 28 U/L (13-60); Osmolality Calculated 284 mOsm/kg (285-295); Potassium 3.9 mmol/L (3.5-5.1); Sodium 138 mmol/L (136-145); Total Bilirubin 0.3 mg/dL (0.15-1.2); Total Protein 8.4 g/dL (6.6-8.7)
[2023-09-05 15:00] VITALS: BP 163/87; PULSE 73; O2SAT 97
--- NOTE | 2023-09-05 15:07 | CTR_ITS ---
PROCEDURE INFORMATION: Exam: CT Abdomen And Pelvis With Contrast Exam date and time: 09/05/2023 4:54 PM Age: 62 years old Clinical indication: Abdominal pain; Epigastric; Additional info: Abd pain TECHNIQUE: Imaging protocol: Computed tomography of the abdomen and pelvis with contrast. Radiation optimization: All CT scans at this facility use at least one of these dose optimization techniques: automated exposure control; mA and/or kV adjustment per patient size (includes targeted exams where dose is matched to clinical indication); or iterative reconstruction. Contrast material: OMNI 350; Contrast volume: 100 ml; Contrast route: INTRAVENOUS (IV); COMPARISON: CR (CHEST, ) 09/02/2023 12:18 AM RADIATION DOSE METRICS: Total DLP (mGy-cm): 306 FINDINGS: Liver: There is no focal abnormality within the liver. Gallbladder and bile ducts: The gallbladder is normal. There is no common bile duct dilation. Pancreas: The pancreas is normal. Spleen: The spleen is normal. Adrenal glands: The adrenal glands are normal. Kidneys and ureters: There is a 7 cm sized benign simple cyst mid right kidney. Left kidneyThere is no evidence of hydronephrosis. There is no evidence of renal or ureteral calcifications. Stomach and bowel: There is no evidence of colitis/diverticulitis. There is no evidence of intestinal obstruction. Appendix: A normal appendix is identified. Intraperitoneal space: There is no evidence of free intraperitoneal fluid. Vasculature: The aorta demonstrates moderate atherosclerotic calcification. There is no evidence of an abdominal aortic aneurysm. Lymph nodes: There is no evidence of lymphadenopathy. Urinary bladder: Unremarkable as visualized. Reproductive: Uterus is normal in size and appearance. There are engorged pelvic vessels around the uterus more on the left side than the right with prompt venous enhancement and prompt enhancement of a enlarged left gonadal vein. This could represent pelvic congestion. Please correlate clinically. Bones/joints: There is some degenerative change in the lower lumbar spine at L5-S1. There is mild scoliosis concave to the right. There is no evidence of acute fracture. Soft tissues: Unremarkable. CT/CT abdomen pelvis w con* [id number] IMPRESSION: 1. Findings suggesting possible pelvic congestion. 2. Otherwise no acute finding. COMMENTS: Consistent with the [place] [employer]'s Incidental Findings Committee white paper (J Am Heike Radiol 2018): Any incidental renal lesion less than 1 cm or classified as too small to characterize, or any incidental cystic renal lesion characterized as simple-appearing, is likely benign. No follow-up imaging is recommended for these lesions per consensus recommendations based on imaging criteria.
--- NOTE | 2023-09-05 15:08 | W.ED.ABDPA2 ---
HPI - Abdominal Pain General: Chief Complaint: Abdominal Pain Stated Complaint: acid reflux, back pain, nausea Time Seen by Provider: 09/05/23 15:07 PFSH ED PFSH: Medical History Anxiety Depression History of nonmelanoma skin cancer Family History Sister Parkinson disease Father Parkinson disease Social History Smoking and tobacco/nicotine status: current every day tobacco/nicotine user cigarettes Alcohol intake: never Course Vital Signs: Vital signs: Vital Signs Temperature 97.6 F 09/05/23 12:24 Pulse Rate 69 09/05/23 12:24 Blood Pressure 178/93 09/05/23 12:24 Pulse Oximetry 100 09/05/23 12:24 Oxygen Delivery Me thod Room Air 09/05/23 12:24 MDM - Abdominal Pain Lab Data 09/05/23 12:58 09/05/23 12:58 Labs/Radiology: Laboratory Results WBC 14.98 10^3/uL (3.29-11.43) H 09/05/23 12:58 RBC 4.33 10^6/uL (3.85-5.65) 09/05/23 12:58 Hgb 13.90 g/dL (11.27-16.99) 09/05/23 12:58 Hct 42.2 % (36-47) 09/05/23 12:58 MCV 97.5 fl (85-98) 09/05/23 12:58 MCH 32.1 pg (27-33) 09/05/23 12:58 MCHC 32.9 g/dL (30-55) 09/05/23 12:58 RDW 11.9 % (12.1-15.1) L 09/05/23 12:58 Plt Count 321 10^3/cmm (157-399) 09/05/23 12:58 MPV 10.1 fL (7.4-10.4) 09/05/23 12:58 Neut % (Auto) 80.4 % 09/05/23 12:58 Lymph % (Auto) 14.6 % 09/05/23 12:58 [place] % (Auto) 4.4 % 09/05/23 12:58 Eos % (Auto) 0.0 % 09/05/23 12:58 Baso % (Auto) 0.1 % 09/05/23 12:58 Neut # (Auto) 12.03 10^3/uL (1.8-7.7) H 09/05/23 12:58 Lymph # (Auto) 2.2 10^3/uL (0.8-4.8) 09/05/23 12:58 [place] # (Auto) 0.7 10^3/uL (0.2-0.9) 09/05/23 12:58 Eos # (Auto) 0.0 10^3/uL (0.0-0.8) 09/05/23 12:58 Baso # (Auto) 0.0 10^3/uL (0.0-0.1) 09/05/23 12:58 Nucleated RBC % (auto) 0 % 09/05/23 12:58 Nucleated RBCs # 0.0 /100WBC 09/05/23 12:58 Sodium 138 mmol/L (136-145) 09/05/23 12:58 Potassium 3.9 mmol/L (3.5-5.1) 09/05/23 12:58 Chloride 100 mmol/L (98-107) 09/05/23 12:58 Carbon Dioxide 26 mmol/L (22-29) 09/05/23 12:58 Anion Gap 15.9 (5-19) 09/05/23 12:58 BUN 7 mg/dL (8-23) L 09/05/23 12:58 Creatinine 0.6 mg/dL (0.5-0.9) 09/05/23 12:58 GFR Calculation 100.6 mL/min (90-130) 09/05/23 12:58 Glucose 98 mg/dL (65-115) 09/05/23 12:58 Calculated Osmolality 284 mOsm/kg (285-295) L 09/05/23 12:58 Calcium 10.3 mg/dL (8.5-10.5) 09/05/23 12:58 Total Bilirubin 0.3 mg/dL (0.15-1.2) 09/05/23 12:58 AST 17 U/L (0-32) 09/05/23 12:58 ALT 10 U/L (0-33) 09/05/23 12:58 Alkaline Phosphatase 127 U/L (35-105) H 09/05/23 12:58 Total Protein 8.4 g/dL (6.6-8.7) 09/05/23 12:58 Albumin 4.9 g/dL (3.5-5.2) 09/05/23 12:58 Globulin 3.5 g/dL (1.3-4.6) 09/05/23 12:58 Lipase 28 U/L (13-60) 09/05/23 12:58 Discharge Plan Discharge Condition: Stable Prescriptions: No Action cholecalciferol (vitamin D3) 50 mcg (2,000 unit) capsule 50 mcg PO DAILY Qty: 90 3RF sertraline 50 mg tablet See Rx Instructions .ROUTE .COMPLEX Qty: 90 3RF Dose Instruction: TAKE ONE TABLET BY MOUTH ONCE DAILY Rx Instructions: TAKE ONE TABLET BY MOUTH ONCE DAILY atenolol 25 mg tablet See Rx Instructions .ROUTE .COMPLEX Qty: 90 3RF Dose Instruction: TAKE ONE TABLET BY MOUTH ONCE DAILY Rx Instructions: TAKE ONE TABLET BY MOUTH ONCE DAILY lorazepam 0.5 mg tablet 0.5 mg PO BID PRN (Reason: anxiety) Qty: 60 0RF epinephrine 0.3 mg/0.3 mL auto-injector 0.3 mg IM Q15M PRN (Reason: anaphylaxis) Qty: 2 0RF Rx Instructions: do not exceed 3 doses per episode Medrol (Harvey) 4 mg tablets,dose pack See Rx Instructions .ROUTE .COMPLEX Qty: 21 0RF Rx Instructions: orally per package directions cyclobenzaprine 5 mg tablet 5 mg PO TID PRN (Reason: muscle spasm) Qty: 14 0RF atorvastatin 20 mg tablet 20 mg PO QPM Referrals: Lanie Pineda NP [Primary Care Provider] - Coding Level of Care Code ED Blood Bank Calendar Control Clerk for Radha Sanchez
--- NOTE | 2023-09-05 15:23 | ED_ITS ---
HPI - Abdominal Pain 2 General: Chief Complaint: Abdominal Pain Stated Complaint: acid reflux, back pain, nausea Time Seen by Provider: 09/05/23 15:07 Source: patient Mode of arrival: ambulatory Limitations: no limitations History of Present Illness: 62-year-old female who been seen here ov er the weekend states has been having some epigastric abdominal pain and some right shoulder pain she states the bleeding was muscular over the weekend should not have any imaging she states that she has had some worsening pain she had some nausea she had constipation she is concerned she may have something going on her abdomen and wanted her checked out further. States the pain is a 4 out of 10 she denies any fevers denies any worsening proving factors. Associated Symptoms: Reports nausea and vomiting; Denies chills, diarrhea, dysuria and fever(s) Review of Systems 2 Const: Denies: fever(s), chills, body aches or change in appetite ENMT: Denies: throat pain or dental pain Card: Denies: chest pain Resp: Denies: dyspnea GI: Reports: abdominal pain, nausea and vomiting; Denies: diarrhea : Denies: dysuria Musc: Denies: neck pain or back pain Skin/Breast: Denies: rash Neuro: Denies: headache(s) PFSH ED 2 PFSH: Medical History Anxiety Depression History of nonmelanoma skin cancer Family History Sister Parkinson disease Father Parkinson disease Social History Smoking and tobacco/nicotine status: current every day tobacco/nicotine user cigarettes Alcohol intake: never Physical Exam 2 Const: COMMON NORMALS: no acute distress, patient oriented x3 and healthy appearing HENMT: COMMON NORMALS: normocephalic and atraumatic HEAD & SCALP: n ormocephalic and atraumatic Neck/C-Spine: COMMON NORMALS: full ROM and supple Chest: COMMONS NORMALS: normal inspection of the chest and normal palpation of entire chest wall Resp: COMMON NORMALS: normal respiratory effort, No retractions, No use of accessory muscles and clear to auscultation bilaterally AUSCULTATION: clear to auscultation bilaterally Cardio: COMMON NORMALS: regular rate, regular rhythm and No murmurs present (Cardio) RATE: regular rate RHYTHM: regular rhythm GI: COMMON NORMALS: Normal to inspection, nondistended, normoactive bowel sounds present, Soft to palpation, non-tender and no masses PALPATION: Yes Soft to palpation Extremity: COMMON NORMALS: normal to inspection and full ROM Neuro: COMMON NORMALS: patient oriented x3, moves all extremities and no focal motor deficits Psych: COMMON NORMALS: mental status grossly normal, Normal thought process present and cooperative THOUGHT PROCESS: Normal thought process present Skin: COMMON NORMALS: no rashes or lesions noted and no wounds GENERAL SKIN EXAM: no rashes or lesions noted Course 2 Vital Signs: Vital signs: Vital Signs Temperature 97.6 F 09/05/23 12:24 Pulse Rate 73 09/05/23 15:00 Blood Pressure 163/87 09/05/23 15:00 Pulse Oximetry 97 09/05/23 15:00 Oxygen Delivery Me thod Room Air 09/05/23 15:00 MDM - Abdominal Pain Medical Decision Making Patient presents here with abdominal pain blood work CT here is normal her pain is improved we will prescribe her Bentyl for home she is follow-up with PCP and return if worsening she understands agrees to plan. Medical Records I reviewed the patient's medical records. Lab Data I reviewed the patient's lab results. 09/05/23 12:58 09/05/23 12:58 Labs/Radiology: Radiology Impressions Abdomen/Pelvis CT 09/05/23 15:07 IMPRESSION: 1. Findings suggesting possible pelvic congestion. 2. Otherwise no acute finding. COMMENTS: Consistent with the [employer]'s Incidental Findings Committee white paper (J Am Heike Radiol 2018): Any incidental renal lesion less than 1 cm or classified as too small to characterize, or any incidental cystic renal lesion characterized as simple-appearing, is likely benign. No follow-up imaging is recommended for these lesions per consensus recommendations based on imaging criteria. Laboratory Results WBC 14.98 10^3/uL (3.29-11.43) H 09/05/23 12:58 RBC 4.33 10^6/uL (3.85-5.65) 09/05/23 12:58 Hgb 13.90 g/dL (11.27-16.99) 09/05/23 12:58 Hct 42.2 % (36-47) 09/05/23 12:58 MCV 97.5 fl (85-98) 09/05/23 12:58 MCH 32.1 pg (27-33) 09/05/23 12:58 MCHC 32.9 g/dL (30-55) 09/05/23 12:58 RDW 11.9 % (12.1-15.1) L 09/05/23 12:58 Plt Count 321 10^3/cmm (157-399) 09/05/23 12:58 MPV 10.1 fL (7.4-10.4) 09/05/23 12:58 Neut % (Auto) 80.4 % 09/05/23 12:58 Lymph % (Auto) 14.6 % 09/05/23 12:58 [place] % (Auto) 4.4 % 09/05/23 12:58 Eos % (Auto) 0.0 % 09/05/23 12:58 Baso % (Auto) 0.1 % 09/05/23 12:58 Neut # (Auto) 12.03 10^3/uL (1.8-7.7) H 09/05/23 12:58 Lymph # (Auto) 2.2 10^3/uL (0.8-4.8) 09/05/23 12:58 [place] # (Auto) 0.7 10^3/uL (0.2-0.9) 09/05/23 12:58 Eos # (Auto) 0.0 10^3/uL (0.0-0.8) 09/05/23 12:58 Baso # (Auto) 0.0 10^3/uL (0.0-0.1) 09/05/23 12:58 Nucleated RBC % (auto) 0 % 09/05/23 12:58 Nucleated RBCs # 0.0 /100WBC 09/05/23 12:58 Sodium 138 mmol/L (136-145) 09/05/23 12:58 Potassium 3.9 mmol/L (3.5-5.1) 09/05/23 12:58 Chloride 100 mmol/L (98-107) 09/05/23 12:58 Carbon Dioxide 26 mmol/L (22-29) 09/05/23 12:58 Anion Gap 15.9 (5-19) 09/05/23 12:58 BUN 7 mg/dL (8-23) L 09/05/23 12:58 Creatinine 0.6 mg/dL (0.5-0.9) 09/05/23 12:58 GFR Calculation 100.6 mL/min (90-130) 09/05/23 12:58 Glucose 98 mg/dL (65-115) 09/05/23 12:58 Calculated Osmolality 284 mOsm/kg (285-295) L 09/05/23 12:58 Calcium 10.3 mg/dL (8.5-10.5) 09/05/23 12:58 Total Bilirubin 0.3 mg/dL (0.15-1.2) 09/05/23 12:58 AST 17 U/L (0-32) 09/05/23 12:58 ALT 10 U/L (0-33) 09/05/23 12:58 Alkaline Phosphatase 127 U/L (35-105) H 09/05/23 12:58 Total Protein 8.4 g/dL (6.6-8.7) 09/05/23 12:58 Albumin 4.9 g/dL (3.5-5.2) 09/05/23 12:58 Globulin 3.5 g/dL (1.3-4.6) 09/05/23 12:58 Lipase 28 U/L (13-60) 09/05/23 12:58 All radiology interpretation(s) finalized by discharge Discharge Plan Discharge Patient Disposition: Home Clinical Impression: Abdominal pain Condition: Stable Prescriptions: New dicyclomine 20 mg tablet 20 mg PO TID PRN (Reason: abdominal pain) Qty: 20 0RF No Action cholecalciferol (vitamin D3) 50 mcg (2,000 unit) capsule 50 mcg PO DAILY Qty: 90 3RF sertraline 50 mg tablet See Rx Instructions .ROUTE .COMPLEX Qty: 90 3RF Dose Instruction: TAKE ONE TABLET BY MOUTH ONCE DAILY Rx Instructions: TAKE ONE TABLET BY MOUTH ONCE DAILY atenolol 25 mg tablet See Rx Instructions .ROUTE .COMPLEX Qty: 90 3RF Dose Instruction: TAKE ONE TABLET BY MOUTH ONCE DAILY Rx Instructions: TAKE ONE TABLET BY MOUTH ONCE DAILY lorazepam 0.5 mg tablet 0.5 mg PO BID PRN (Reason: anxiety) Qty: 60 0RF epinephrine 0.3 mg/0.3 mL auto-injector 0.3 mg IM Q15M PRN (Reason: anaphylaxis) Qty: 2 0RF Rx Instructions: do not exceed 3 doses per episode Medrol ([place]) 4 mg tablets,dose pack See Rx Instructions .ROUTE .COMPLEX Qty: 21 0RF Rx Instructions: orally per package directions cyclobenzaprine 5 mg tablet 5 mg PO TID PRN (Reason: muscle spasm) Qty: 14 0RF atorvastatin 20 mg tablet 20 mg PO QPM Discharge Orders: Discharge ED (Routine); Ordered 09/05/23 Ordered By: Arben Millard Referrals: Lanie Pineda NP [Primary Care Provider] - 1-3 days Discharge Diet: Advance as tolerated Discharge Activity: Resume usual activity Patient Instructions: Abdominal Pain (ED) Coding Level of Care Code ED Slider Assembler for Radha Sanchez
[2023-09-05] MEDS: iohexol 350 mg/mL 500 mL Btl (per mL) IV (16:57)
[2023-09-05 18:14] VITALS: BP 168/85; PULSE 55; O2SAT 97
== END 2023-09-05 18:15 | disposition home or self-care (01) ==
PROVIDERS: Emergency Provider Emergency Medicine; PCP Nurse Practitioner Family
DX: R10.13 Epigastric pain (principal); F17.210 Nicotine dependence, cigarettes, uncomplicated
CPT/HCPCS: 36415; 74177; 80053; 83690; 85025; 93005; 99285; Q9967

== ENCOUNTER → 2023-09-24 13:40 | Outpatient (BNVA) | payer OTHER, MEDICAID, SELFPAY | PROVIDERS: PCP Nurse Practitioner Family; Visit Provider Nurse Practitioner Family | DX: R39.198 Other difficulties with micturition (principal) | CPT/HCPCS: 81000 ==

== ENCOUNTER → 2024-03-03 11:01 | Outpatient (BNVA) | payer OTHER, MEDICARE, MEDICAID, SELFPAY | PROVIDERS: PCP Nurse Practitioner Family; Visit Provider Nurse Practitioner Family | DX: R30.0 Dysuria (principal) | CPT/HCPCS: 81000; 87086 ==

== ENCOUNTER → 2024-10-24 10:30 | Outpatient (BNVA) | payer MEDICARE, MEDICAID, SELFPAY | PROVIDERS: PCP Nurse Practitioner Family; Visit Provider Nurse Practitioner Family | DX: I10 Essential (primary) hypertension (principal); E55.9 Vitamin D deficiency, unspecified; F41.9 Anxiety disorder, unspecified | CPT/HCPCS: 80053; 80061; 82306 ==

== ENCOUNTER → 2025-06-02 09:30 | Outpatient (BNVA) | payer MEDICARE, SELFPAY | PROVIDERS: PCP Nurse Practitioner Family; Visit Provider Nurse Practitioner Family | DX: E55.9 Vitamin D deficiency, unspecified (principal); I10 Essential (primary) hypertension | CPT/HCPCS: 80053; 80061; 82306; 84443; 85025 ==